=== PATIENT | male | born 1960 | race Hispanic/Latino ===

== ENCOUNTER 2022-07-31 09:22 | Inpatient (IN) | payer BC ==
[~2022-07-31] VITALS: Ht 162.6 cm; Wt 56.8 kg
[2022-07-31 10:14] LABS: BASOPHILS % (AUTO) 0.3 % (0.0-5.0); EOSINOPHILS % (AUTO) 0.1 % (0.0-8.0); HEMATOCRIT 35.5 % (42-54); LYMPHOCYTES % (AUTO) 5.9 % (21.0-51.0); MEAN CORPUSCULAR HEMOGLOBIN 24.3 pg (27.0-33.0); MEAN CORPUSCULAR HGB CONC 31.5 g/dL (32.0-36.0); MEAN CORPUSCULAR VOLUME 77.2 fL (79-99); MONOCYTES % (AUTO) 7.1 % (3.0-13.0); NEUTROPHILS % (AUTO) 86.1 % (40.0-77.0); PLATELET COUNT (AUTO) 431 K/uL (130-400); RED CELL DISTRIBUTION WIDTH 15.9 % (11.0-15.5); WHITE BLOOD COUNT (AUTO) 15.7 K/uL (4.8-10.8)
[2022-07-31 10:40] LABS: ALBUMIN 2.5 g/dL (3.5-5.0); CREATININE 0.6 mg/dL (0.5-1.5); POTASSIUM 3.6 mmol/L (3.5-5.1); TOTAL PROTEIN, SERUM 7.8 g/dL (6.0-8.3)
[2022-07-31] MEDS ORDERED: ALBUTEROL 0.083% 2.5 MG/3 ML INH IH STA (11:49)
[2022-07-31] MEDS ORDERED: CEFTRIAXONE 1G VIAL IVP STA (11:49)
[2022-07-31] MEDS ORDERED: ONDANSETRON 4MG INJ IVP PRN (12:00)
[2022-07-31] MEDS ORDERED: VANCOMYCIN PROTOCOL PER PHARMACY IV PRN (12:00)
[2022-07-31] MEDS ORDERED: ACETAMINOPHEN 650 MG SUPPOSITORY RC PRN (12:00)
[2022-07-31] MEDS ORDERED: VANCOMYCIN 1.25 GM/250 ML BAG 250 ML IV SCH (12:00)
[2022-07-31] MEDS: AZITHROMYCIN 500MG+NS 250ML IVPB SCH (12:34)
[2022-07-31] MEDS ORDERED: HYDRALAZINE 20MG/ML VIAL IV PRN (13:30)
[2022-07-31] MEDS ORDERED: GLUCAGON 1MG KIT 1 MG ML IM PRN (14:00)
[2022-07-31] MEDS ORDERED: DEXTROSE 50%-WATER 50 ML DISP.SYRIN IV PRN (14:00)
[2022-07-31] MEDS: ZOSYN 3.375GM+NS 50ML 50 ML IV SCH ×2 (14:06→20:50)
[2022-07-31 15:04] LABS: APPEARANCE,URINE CLEAR (CLEAR); BILIRUBIN,URINE NEGATIVE (NEGATIVE); COLOR,URINE YELLOW (YELLOW); GLUCOSE, URINE (UA) >=1000 mg/dL (NEGATIVE); KETONES,URINE 10 mg/dL (NEGATIVE); LEUKOCYTE ESTERASE ,URINE NEGATIVE Leu/uL (NEGATIVE); NITRATE,URINE NEGATIVE (NEGATIVE); OCCULT BLOOD,URINE NEGATIVE (NEGATIVE); PROTEIN,URINE 50 mg/dL (NEGATIVE); UROBILINOGEN,URINE 6 mg/dL (0.2-1.0)
[2022-07-31 15:08] LABS: AMPHET/METH SCREEN,URINE NEGATIVE (NEGATIVE); BARBITURATE SCREEN, URINE NEGATIVE (NEGATIVE); BENZODIAZEPINES SCREEN,URINE NEGATIVE (NEGATIVE); CANNABINOID SCREEN,URINE NEGATIVE (NEGATIVE); COCAINE SCREEN,URINE NEGATIVE (NEGATIVE); OPIATE SCREEN,URINE NEGATIVE (NEGATIVE); PHENCYCLIDINE SCREEN,URINE NEGATIVE (NEGATIVE)
[2022-07-31 15:11] LABS: BACTERIA,URINE RARE /HPF (None Seen); MUCUS,URINE RARE LPF (None Seen); RBC,URINE 0-1 /HPF (0-1); SQUAMOUS EPITHELIAL CELL,UR RARE /HPF (0-2); WBC,URINE 0-1 /HPF (0-1)
[2022-07-31] MEDS: INSULIN HUMULIN R 100 UNIT/ML 3ML SQ SCH ×2 (16:30→20:50)
[2022-07-31 21:26] VITALS: BP 125/72
[2022-07-31] MEDS: VANCOMYCIN 750MG VIAL IVPB SCH (22:47)
[2022-07-31 23:36] VITALS: BP 122/76
[2022-07-31] MEDS: IPRATROPIUM 0.5 MG/2.5 ML INH IH PRN (23:42)
[2022-07-31] MEDS: ALBUTEROL 0.083% 2.5 MG/3 ML INH IH PRN (23:43)
[2022-08-01] VITALS (9 sets, daily range): BP systolic 117–169; BP diastolic 49–78
[2022-08-01 03:28] LABS: BASOPHILS % (AUTO) 0.4 % (0.0-5.0); EOSINOPHILS % (AUTO) 1.6 % (0.0-8.0); HEMATOCRIT 32.3 % (42-54); LYMPHOCYTES % (AUTO) 9.3 % (21.0-51.0); MEAN CORPUSCULAR HEMOGLOBIN 24.8 pg (27.0-33.0); MONOCYTES % (AUTO) 7.1 % (3.0-13.0); NEUTROPHILS % (AUTO) 81.3 % (40.0-77.0); PLATELET COUNT (AUTO) 354 K/uL (130-400); RED BLOOD CELL COUNT(AUTO) 4.04 MIL/uL (4.50-6.20); RED CELL DISTRIBUTION WIDTH 15.8 % (11.0-15.5); WHITE BLOOD COUNT (AUTO) 14.7 K/uL (4.8-10.8)
[2022-08-01 03:55] LABS: ALBUMIN 2.1 g/dL (3.5-5.0); CREATININE 0.5 mg/dL (0.5-1.5); POTASSIUM 3.1 mmol/L (3.5-5.1); TOTAL PROTEIN, SERUM 7.2 g/dL (6.0-8.3)
[2022-08-01] MEDS: ZOSYN 3.375GM+NS 50ML 50 ML IV SCH ×3 (04:26→21:15)
[2022-08-01] MEDS ORDERED: POTASSIUM CHLORIDE 10MEQ/100ML 100 ML IV PRN (05:00)
[2022-08-01] MEDS: 0.9% NACL 250ML 250 ML IV SCH ×2 (06:28→13:07)
[2022-08-01] MEDS: VANCOMYCIN 750MG VIAL IVPB SCH ×3 (06:28→22:51)
[2022-08-01] MEDS: IPRATROPIUM 0.5 MG/2.5 ML INH IH PRN (06:42)
[2022-08-01] MEDS: ALBUTEROL 0.083% 2.5 MG/3 ML INH IH PRN (06:43)
[2022-08-01] MEDS: INSULIN HUMULIN R 100 UNIT/ML 3ML SQ SCH ×4 (06:58→21:00)
[2022-08-01] MEDS: FAMOTIDINE 20MG VIAL IV SCH ×2 (08:38→21:15)
[2022-08-01] MEDS: MAGNESIUM 2GM PREMIX 50ML 50 ML IV PRN ×2 (08:39→08:41)
[2022-08-01] MEDS: ENOXAPARIN SODIUM 40 MG/0.4 ML SYRINGE SQ SCH (08:39)
[2022-08-01] MEDS: BALSAM PERU/CASTOR OIL 60 GM TUBE TP SCH ×2 (09:30→21:15)
[2022-08-01] MEDS ORDERED: KCL 20 MEQ ERTAB PO PRN (10:00)
[2022-08-01] MEDS ORDERED: ALBUTEROL 0.083% 2.5 MG/3 ML INH IH SCH (10:00)
[2022-08-01] MEDS ORDERED: IPRATROPIUM 0.5 MG/2.5 ML INH IH SCH (10:00)
[2022-08-01] MEDS: AZITHROMYCIN 500MG+NS 250ML IVPB SCH (10:58)
[2022-08-01] MEDS: POTASSIUM CHLORIDE 10% ELIXIR 20 MEQ/15 ML UDCUP PO PRN ×3 (11:47→17:41)
[2022-08-01] MEDS ORDERED: GABA300C PEG (18:03)
[2022-08-01] MEDS ORDERED: FLUO20CA30 PEG (18:03)
[2022-08-01] MEDS ORDERED: METF-444 PEG (18:03)
[2022-08-01] MEDS ORDERED: GABA600T PEG (18:03)
[2022-08-01] MEDS: ALBUTEROL 0.083% 2.5 MG/3 ML INH IH SCH ×2 (18:40→23:30)
[2022-08-01] MEDS: IPRATROPIUM 0.5 MG/2.5 ML INH IH SCH ×2 (18:40→23:30)
[2022-08-01] MEDS: NYSTATIN 15 GM POWDER TP SCH (21:15)
[2022-08-02 04:00] VITALS: BP 148/76
[2022-08-02] MEDS: ZOSYN 3.375GM+NS 50ML 50 ML IV SCH ×3 (04:29→21:04)
[2022-08-02 05:32] LABS: MAGNESIUM 1.9 mg/dL (1.80-2.40)
[2022-08-02] MEDS: VANCOMYCIN 750MG VIAL IVPB SCH ×3 (06:07→22:57)
[2022-08-02] MEDS: INSULIN HUMULIN R 100 UNIT/ML 3ML SQ SCH ×3 (06:07→21:00)
[2022-08-02] MEDS: ALBUTEROL 0.083% 2.5 MG/3 ML INH IH SCH ×4 (06:58→23:09)
[2022-08-02] MEDS: IPRATROPIUM 0.5 MG/2.5 ML INH IH SCH ×4 (06:59→23:09)
[2022-08-02 07:27] LABS: CREATININE 0.4 mg/dL (0.5-1.5); POTASSIUM 3.7 mmol/L (3.5-5.1)
[2022-08-02 08:17] LABS: HEMATOCRIT 30.8 % (42-54); MEAN CORPUSCULAR HEMOGLOBIN 24.2 pg (27.0-33.0); MEAN CORPUSCULAR HGB CONC 30.8 g/dL (32.0-36.0); MEAN CORPUSCULAR VOLUME 78.6 fL (79-99); RED BLOOD CELL COUNT(AUTO) 3.92 MIL/uL (4.50-6.20); RED CELL DISTRIBUTION WIDTH 16.2 % (11.0-15.5); WHITE BLOOD COUNT (AUTO) 14.2 K/uL (4.8-10.8)
[2022-08-02 08:26] LABS: ALBUMIN 1.9 g/dL (3.5-5.0); TOTAL PROTEIN, SERUM 6.4 g/dL (6.0-8.3)
[2022-08-02 09:35] VITALS: BP 127/72
[2022-08-02] MEDS: NYSTATIN 15 GM POWDER TP SCH ×2 (10:09→20:04)
[2022-08-02] MEDS: BALSAM PERU/CASTOR OIL 60 GM TUBE TP SCH ×2 (10:09→20:04)
[2022-08-02] MEDS: FAMOTIDINE 20MG VIAL IV SCH ×2 (10:10→21:06)
[2022-08-02] MEDS: ENOXAPARIN SODIUM 40 MG/0.4 ML SYRINGE SQ SCH (10:10)
[2022-08-02 12:13] VITALS: BP 126/69
[2022-08-02] MEDS: AZITHROMYCIN 500MG+NS 250ML IVPB SCH (12:44)
[2022-08-02] MEDS: GLYCOPYRROLATE 1 MG/5 ML SYRINGE IV SCH (14:13)
[2022-08-02 16:41] VITALS: BP 134/71
[2022-08-02 18:50] LABS: INR 1.06 (0.85-1.15); PROTHROMBIN TIME 11.5 SEC (9.6-11.6)
[2022-08-02 20:51] VITALS: BP 118/68
[2022-08-02 23:54] VITALS: BP 112/65
[2022-08-03] MEDS: GLYCOPYRROLATE 1 MG/5 ML SYRINGE IV SCH ×2 (02:02→13:00)
[2022-08-03] MEDS: ZOSYN 3.375GM+NS 50ML 50 ML IV SCH (04:18)
[2022-08-03 04:27] VITALS: BP_SYST 146; BP_SYST 149; BP_DIAS 62; BP_DIAS 85
[2022-08-03 05:01] LABS: % IRON SATURATION 7.8 % (30-44)
[2022-08-03 05:40] LABS: ALBUMIN 1.8 g/dL (3.5-5.0); CREATININE 0.3 mg/dL (0.5-1.5); CRP QUANTITATIVE 141.9 mg/L (0.00-9.0); POTASSIUM 3.7 mmol/L (3.5-5.1); THYROID STIMULATING HORMONE 1.1 uIU/mL (0.36-3.74); TOTAL PROTEIN, SERUM 6.3 g/dL (6.0-8.3)
[2022-08-03] MEDS: INSULIN HUMULIN R 100 UNIT/ML 3ML SQ SCH ×2 (06:16→11:30)
[2022-08-03] MEDS: VANCOMYCIN 750MG VIAL IVPB SCH ×2 (06:34→14:00)
[2022-08-03] MEDS: POTASSIUM CHLORIDE 10% ELIXIR 20 MEQ/15 ML UDCUP PO PRN (06:52)
[2022-08-03] MEDS: ALBUTEROL 0.083% 2.5 MG/3 ML INH IH SCH ×2 (06:54→11:20)
[2022-08-03] MEDS: IPRATROPIUM 0.5 MG/2.5 ML INH IH SCH ×2 (06:54→11:20)
[2022-08-03 08:25] VITALS: BP 123/67
[2022-08-03] MEDS: FAMOTIDINE 20MG VIAL IV SCH (08:26)
[2022-08-03] MEDS: ENOXAPARIN SODIUM 40 MG/0.4 ML SYRINGE SQ SCH (08:27)
[2022-08-03] MEDS: NYSTATIN 15 GM POWDER TP SCH (08:28)
[2022-08-03] MEDS: BALSAM PERU/CASTOR OIL 60 GM TUBE TP SCH (08:28)
[2022-08-03] MEDS ORDERED: MULTIVITAMINS W-IRON 50 ML DROPS PO SCH (09:00)
[2022-08-03] MEDS ORDERED: SOD FERRIC GLUC COMPLEX/SUC 125 MG in 0.9%NACL 100ML 100 ML IV SCH (09:00)
[2022-08-03] MEDS ORDERED: POLYETHYLENE GLYCOL 3350 17 GM POWD.PACK PO SCH (09:00)
[2022-08-03] MEDS ORDERED: MEROPENEM 1 GM VIAL IVP SCH (09:00)
[2022-08-03] MEDS ORDERED: IRON SUCROSE COMPLEX 300 MG in 0.9% NACL 250ML 250 ML IVP SCH (11:00)
[2022-08-03] MEDS ORDERED: COMPOUND IV MISC 1 EACH IVSOLN MISC PRN (11:00)
[2022-08-03 11:52] VITALS: BP 123/65
[2022-08-03] MEDS: 0.9% NACL 250ML 250 ML IV SCH (14:42)
[2022-08-04] MEDS ORDERED: IRON SUCROSE COMPLEX 300 MG in 0.9% NACL 250ML 250 ML IVP SCH (09:00)
== END 2022-08-03 15:10 | DRG 205 ==
LOC: EDH 09:22 → EDHIP 11:41 → 2AH 20:55
PROVIDERS: ADMIT Hospitalist; ATTEND Hospitalist
PROC: 0B21XFZ Change Tracheostomy Device in Trachea, External Approach (ICD-10-PCS; principal; 2022-07-31)
DX: J95.03 Malfunction of tracheostomy stoma (principal); A41.9 Sepsis, unspecified organism; E43 Unspecified severe protein-calorie malnutrition; J69.0 Pneumonitis due to inhalation of food and vomit; J96.01 Acute respiratory failure with hypoxia; I69.354 Hemiplegia and hemiparesis following cerebral infarction affecting left non-dominant side; Z20.822 Contact with and (suspected) exposure to COVID-19; D64.9 Anemia, unspecified; E11.9 Type 2 diabetes mellitus without complications; E78.5 Hyperlipidemia, unspecified; E87.6 Hypokalemia; I10 Essential (primary) hypertension; L89.322 Pressure ulcer of left buttock, stage 2; L89.312 Pressure ulcer of right buttock, stage 2; R13.10 Dysphagia, unspecified; Z86.16 Personal history of COVID-19; Z68.21 Body mass index [BMI] 21.0-21.9, adult; Y83.8 Other surgical procedures as the cause of abnormal reaction of the patient, or of later complication, without mention of misadventure at the time of the procedure
CPT/HCPCS: 31502; 36415; 71045; 71250; 80053; 80202; 80305; 81001; 82607; 82728; 82746; 82948; 83540; 83550; 83605; 83735; 84145; 84443; 85025; 85027; 85610; 85651; 86140; 86738; 87040; 87071; 87077; 87186; 87205; 87449; 87635; 87804; 92610; 94640; 94664; 94667; 94668; 97039; C9803; G0378; J0456; J0696; J1650; J1756; J1815; J2185; J2543; J3475; J3490; J7050